=== PATIENT | male | born 1975 | race African-American/Black ===

== ENCOUNTER 2017-08-20 22:34 | Emergency (ER) | payer SELFPAY ==
[2017-08-21] MEDS ORDERED: LIDOCAINE 1% INJ-PF (10 MG/ML) 30 ML SDV INJ ONE
--- NOTE | 2017-08-21 00:08 | ER Document Report ---
ED General - General Chief Complaint: Abscess Stated Complaint: POSSIBLE ABSCESS Time Seen by Provider: 08/20/17 23:52 TRAVEL OUTSIDE OF THE [place] IN LAST 30 DAYS: No - HPI Notes: 41-year-old male presents with possible facial abscess. Patient describes 1 day of increasingly severe swelling and pain in his left cheek region. States started off as a "boil" from an ingrown hair. It has grown in size, throbbing aching, constant. No fever. No history of recurrent abscesses or MRSA. No other modifying factors, no other associated symptoms, no other provocative or palliative factors. Past Medical History - Social History Smoking Status: Never Smoker Drug Abuse: None Lives with: Spouse/Significant other Family History: Reviewed & Not Pertinent - Medical History Medical History: Negative Review of Systems - Review of Systems Notes: Review of systems as in the history of present illness, otherwise negative. Physical Exam - Vital signs Vitals: Temp Pulse Resp BP Pulse Ox 98.6 F 72 16 167/87 H 97 08/20/17 22:51 08/20/17 22:51 08/20/17 22:51 08/20/17 22:51 08/20/17 22:51 - Notes Notes: General: Well devloped, no acute distress. HEENT: Normocephalic, atraumatic. Pupils equal round reactive to light. Mucosa moist. No JVD. There is a 2 x 3 cm area of induration with mild surrounding cellulitis noted about the left cheek Chest: No trauma, normal excursion. Respiratory: Good air exchange, normal excursion. Cardiac: Regular rhythm Abdomen: Soft, benign. Nondistended. Back: No asymmetry or gross abnormality. Motor: Grossly normal power and tone. Neurologic: Alert, nonfocal. Vascular: Well perfused Skin: No petechiae or purpura Course - Re-evaluation Re-evalutation: 08/21/17 00:08 Appearing male with facial abscess, will proceed with consent, incision and drainage. 08/21/17 00:43 Incision and drainage is attempted as described below. There was minimal purulent drainage after incision. This appears to be more consistent with cellulitis. Patient given a dose of Keflex and tramadol in the ED, prescription for the same, will follow up in 24 hours for a wound check. Informed consent was obtained, risks and benefits are discussed, including skin permanent scarring. After appropriate preparation, the area is anesthetized with 1% lidocaine. An incision is made with return of minimal purulent material. Area is explored, and no loculations are found. Irrigated. The wound is packed. No complications. - Vital Signs Vital signs: Temp Pulse Resp BP Pulse Ox 98.6 F 72 16 167/87 H 97 08/20/17 22:51 08/20/17 22:51 08/20/17 22:51 08/20/17 22:51 08/20/17 22:51 Discharge - Discharge Clinical Impression: Cellulitis Qualifiers: Site of cellulitis: face Qualified Code(s): L03.211 - Cellulitis of face Condition: Good Disposition: HOME, SELF-CARE Instructions: Abscess ([facility]), Post Incision and Drainage
[2017-08-21] MEDS ORDERED: CEPHALEXIN 500 MG CAPSULE PO ONE (00:42)
[2017-08-21] MEDS ORDERED: TRAMADOL HCL 50 MG TABLET PO ONE (00:43)
[2017-08-21 01:05] VITALS: BP 124/74
== END 2017-08-21 01:05 | disposition home or self-care (01) ==
LOC: ER 22:34
PROC: 0H91XZZ Drainage of Face Skin, External Approach (ICD-10-PCS; principal; 2017-08-20)
DX: L03.211 Cellulitis of face (principal)
CPT/HCPCS: 10060; 99283; A6266; J3490

== ENCOUNTER 2018-01-09 12:13 | Inpatient (IN) | payer SELFPAY ==
[~2018-01-09 12:13] MED LIST: SUCCINYLCHOLINE CHLORIDE INJ 200 MG/10 ML VIAL ONE
--- NOTE | 2018-01-09 12:20 | ER Document Report ---
ED Extremity Problem, Lower - General Stated Complaint: POSSIBLE BROKEN ANKLE Time Seen by Provider: 01/09/18 12:15 Mode of Arrival: Stretcher Information source: Patient, Emergency Med Personnel TRAVEL OUTSIDE OF THE [place] IN LAST 30 DAYS: No - HPI Patient complains to provider of: Injury, Pain, Swelling Location: Ankle Occurred: Just prior to arrival Where: Outdoors Onset/Duration: Sudden Quality of pain: Achy Severity: Severe Pain Level: 5 Context: Fell Recent injury: Yes Exacerbated by: Movement Relieved by: Nothing Notes: Patient is a 42-year-old male brought to the emergency room by EMS for injury to his left ankle, apparently patient was attempting to abscond from law enforcement, when he tripped and fell injuring his left ankle, he also has abrasions on his bilateral knees and an abrasion to his right forehead, he denies any loss of consciousness, patient received IV pain medication in route, has a gross deformity to the left ankle - Related Data Allergies/Adverse Reactions: No Known Allergies Allergy (Unverified 01/09/18 12:49) Past Medical History - General Information source: Patient, Emergency Med Personnel - Social History Smoking Status: Unknown if Ever Smoked Family History: Reviewed & Not Pertinent Renal/ Medical History: Denies: Hx Peritoneal Dialysis Review of Systems - Review of Systems Constitutional: No symptoms reported EENT: No symptoms reported Cardiovascular: No symptoms reported Respiratory: No symptoms reported Gastrointestinal: No symptoms reported Genitourinary: No symptoms reported Male Genitourinary: No symptoms reported Musculoskeletal: See HPI Skin: No symptoms reported Hematologic/Lymphatic: No symptoms reported Neurological/Psychological: No symptoms reported -: Yes All other systems reviewed and negative Physical Exam - Vital signs Vitals: Temp Pulse Resp BP Pulse Ox 97.2 F 79 17 150/104 H 98 01/09/18 12:25 01/09/18 12:25 01/09/18 12:25 01/09/18 12:25 01/09/18 12:25 Interpretation: Normal - General General appearance: Appears well, Alert - HEENT Head: Normocephalic, Abrasions - 2 cm abrasion to right forehead Eyes: Normal Conjunctiva: Normal Extraocular movements intact: Yes Eyelashes: Normal Pupils: PERRL Neck: Normal - Respiratory Respiratory status: No respiratory distress Chest status: Nontender Breath sounds: Normal Chest palpation: Normal - Cardiovascular Rhythm: Regular Heart sounds: Normal auscultation Murmur: No - Abdominal Inspection: Normal Distension: No distension Bowel sounds: Normal Tenderness: Nontender Organomegaly: No organomegaly - Back Back: Normal, Nontender - Extremities General upper extremity: Normal inspection, Nontender, Normal color, Normal ROM , Normal temperature General lower extremity: Normal color, Normal temperature. No: Jesusita's sign Ankle: Other - Positive deformity to left ankle with distal tibia completely exposed outside of the skin, 2+ DP pulses with brisk capillary refill, distal sensation and motor is intact as well - Neurological Neuro grossly intact: Yes Cognition: Normal Orientation: AAOx4 Fermin Coma Scale Eye Opening: Spontaneous Fermin Coma Scale Verbal: Oriented Fermin Coma Scale Motor: Obeys Commands Fermin Coma Scale Total: 15 Speech: Normal Motor strength normal: LUE, RUE, LLE, RLE Sensory: Normal - Psychological Associated symptoms: Normal affect, Normal mood - Skin Skin Temperature: Warm Skin Moisture: Dry Skin Color: Normal Course - Re-evaluation Re-evalutation: 01/09/18 12:52 Orthopedic physician, Dr. Talat Fink contacted in regards to treatment plan, recommends attempting to reduce, IV antibiotics and admission 01/09/18 13:51 Ankle reduction attempted at bedside under procedural sedation by myself and another emergency medicine physician, however attempts were unsuccessful, orthopedics was contacted who will take patient to the OR for further reduction as well as washout, recommended preop labs, IV antibiotics and pain control as needed, as well as iodine soaked dressings and immobilization - Vital Signs Vital signs: Temp Pulse Resp BP Pulse Ox 97.2 F 93 16 161/100 H 100 01/09/18 12:25 01/09/18 13:27 01/09/18 13:27 01/09/18 14:00 01/09/18 13:27 - Laboratory Result Diagrams: 01/09/18 13:55 01/09/18 13:55 - Diagnostic Test Radiology reviewed: Image reviewed, Reports reviewed Procedures - Conscious Sedation Conscious sedation Time started: 13:29 Time completed: 14:02 Consent obtained: Yes Indication: Ankle dislocation Emergent conditions applies.: E. - ASA Classification Airway Evaluation: Normal anatomy Mallampati Classification: Class 2 Used during procedure: Suction available, IV access obtained, Pulse ox on pt., color television console monitor on pt. Medications administered: Diprivan Reversal agents: None I personally performed/intraservice time: Sedation, Procedure, 31-45 min Complications: No - Immobilization Left Ankle Time completed: 14:00 Pre-Proc Neuro Vasc Exam: Normal Immobilizer type: Sugar tong, Short Leg Posterior Performed by: PCT Post-Proc Neuro Vasc Exam: Normal Alignment checked and good: Yes - Joint Reduction/Fracture Care Left Ankle Time completed: 14:00 Consent obtained: Yes Conscious sedation: Yes Pre-procedure NV exam: Yes Fracture: Open Manipulation comment: Dislocation exaggerated with traction Post-procedure NV exam: Yes Reduction attempts: 3 Complications: Yes - Unable to reduce Notes: 01/09/18 14:27 Several attempts were made under procedural sedation to reduce the ankle dislocation, by [facility], myself and Dr. Moise Hall, all attempts were unsuccessful given the extreme nature of the dislocation, orthopedics was contacted and will take patient to OR for washout and reduction Discharge - Discharge Clinical Impression: Fracture dislocation of ankle Qualifiers: Encounter type: initial encounter Fracture type: open Open fracture type: open type III Laterality: left Qualified Code(s): S82.892C - Other fracture of left lower leg, initial encounter for open fracture type IIIA, IIIB, or IIIC Condition: Stable Disposition: ADMITTED INPATIENT Admitting Provider: Surgicalist - Dr Fink Unit Admitted: Surgical Floor
[2018-01-09] MEDS ORDERED: PROPOFOL INJ 200 MG/20 ML VIAL IV ONE ×5 (12:52→15:37)
[2018-01-09] MEDS ORDERED: CEFAZOLIN 2 GM/D5W RTU 2 GM/50 ML RTUPB IV ONE ×2 (12:52→13:12)
--- NOTE | 2018-01-09 12:53 | RADIOLOGY REPORT (SQ) ---
EXAM DESCRIPTION: CT HEAD WITHOUT COMPLETED DATE/TIME: 01/09/2018 12:44 pm REASON FOR STUDY: injury COMPARISON: None. TECHNIQUE: Axial images acquired through the brain without intravenous contrast. Images reviewed wi th bone, brain and subdural windows. Additional sagittal and coronal reconstructions were generated. Images stored on PACS. All CT scanners at this facility use dose modulation, iterative reconstruction, and/or weight based d osing when appropriate to reduce radiation dose to as low as reasonably achievable (ALARA). [facility]: Dose Right [facility]: CareDose [facility]: Dose Right [facility]: Teradose 4D [facility]: Ad Summos RADIATION DOSE: mGy. LIMITATIONS: None. FINDINGS: VENTRICLES: Normal size and contour. CEREBRUM: No masses. No hemorrhage. No midline shift. No evidence for acute infarction. Normal gra y/white matter differentiation. No areas of low density in the white matter. CEREBELLUM: No masses. No hemorrhage. No alteration of density. No evidence for acute infarction. EXTRAAXIAL SPACES: No fluid collections. No masses. ORBITS AND GLOBE: No intra- or extraconal masses. Normal contour of globe without masses. CALVARIUM: No fracture. PARANASAL SINUSES: No fluid or mucosal thickening. SOFT TISSUES: No mass or hematoma. OTHER: No other significant finding. IMPRESSION: NORMAL BRAIN CT WITHOUT CONTRAST. EVIDENCE OF ACUTE STROKE: NO. COMMENT: Quality ID # [id number]: Final reports with documentation of one or more dose reduction techniques (e.g., Automated exposure control, adjustment of the mA and/or kV according to patient size, use of iterative reconstruction technique) TECHNICAL DOCUMENTATION: JOB ID: [id number] [employer]- All Rights Reserved Reading location - IP/workstation name: [email or web address] / [email or web address]
--- NOTE | 2018-01-09 12:57 | RADIOLOGY REPORT (SQ) ---
EXAM DESCRIPTION: ANKLE LEFT COMPLETE COMPLETED DATE/TIME: 01/09/2018 12:41 pm REASON FOR STUDY: injury COMPARISON: None. NUMBER OF VIEWS: Two views. TECHNIQUE: AP and lateral radiographic images acquired of the left ankle. LIMITATIONS: None. FINDINGS: Lateral dislocation of the ankle joint. Oblique fracture of the lateral malleolus with th e fragment lateral to the talus. IMPRESSION: Fracture dislocation of the ankle. TECHNICAL DOCUMENTATION: JOB ID: [id number] [employer]- All Rights Reserved Reading location - IP/workstation name: [email or web address]
[2018-01-09] MEDS ORDERED: FENTANYL CITRATE INJ/PF 100 MCG/2 ML AMPUL IV ONE (13:55)
[2018-01-09] MEDS ORDERED: FENTANYL CITRATE INJ/PF 100 MCG/2 ML AMPUL ONE ×2 (13:56→15:36)
[2018-01-09 14:41] LABS: ABSOLUTE EOSINOPHILS # (AUTO) 0.1 10^3/uL (0.0-0.6); ABSOLUTE LYMPHOCYTES (AUTO) 1.1 10^3/uL (0.5-4.7); ABSOLUTE MONOCYTES (AUTO) 0.7 10^3/uL (0.1-1.4); ABSOLUTE NEUT (AUTO) 4.4 10^3/uL (1.7-8.2); BASOPHILS % (AUTO) 0.2 % (0-2); EOSINOPHILS % (AUTO) 1.3 % (0-6); HEMATOCRIT 42.9 % (37.9-51.0); LYMPHOCYTES % (AUTO) 17.8 % (13-45); MEAN CORPUSCULAR HEMOGLOBIN 30.7 pg (27.0-33.4); MEAN CORPUSCULAR HGB CONC 34.9 g/dL (32.0-36.0); MEAN CORPUSCULAR VOLUME 88 fl (80-97); PLATELET COUNT 159 10^3/uL (150-450); RED BLOOD COUNT 4.87 10^6/uL (4.35-5.55); SEGMENTED NEUTROPHILS % (AUTO) 69.7 % (42-78); TOTAL CELLS COUNTED % (AUTO) 100 %; WHITE BLOOD COUNT 6.3 10^3/uL (4.0-10.5)
[2018-01-09 14:46] LABS: INTERNATIONAL RATION (INR) 0.98; PROTHROMBIN TIME 13.5 SEC (11.4-15.4)
[2018-01-09 14:47] LABS: PARTIAL THROMBOPLASTIN TIME 27.9 SEC (23.5-35.8)
[2018-01-09 15:04] LABS: ANION GAP 12 (5-19); BLOOD UREA NITROGEN 17 mg/dL (7-20); CALCIUM 9.1 mg/dL (8.4-10.2); CARBON DIOXIDE 23 mmol/L (22-30); CHLORIDE 106 mmol/L (98-107); GLUCOSE 101 mg/dL (75-110); POTASSIUM 4.5 mmol/L (3.6-5.0); SODIUM 141.2 mmol/L (137-145)
[2018-01-09] MEDS ORDERED: BACITRACIN INJ 50,000 UNIT VIAL ONE (15:19)
[2018-01-09] MEDS ORDERED: BUPIVACAINE HCL 0.5 % INJ/PF 30 ML SDV ONE (15:19)
[2018-01-09] MEDS ORDERED: HYDROMORPHONE HCL INJ/PF 2 MG/ML AMPULE ONE (15:36)
[2018-01-09] MEDS ORDERED: MIDAZOLAM 2 MG/2 ML INJ ONE (15:36)
[2018-01-09] MEDS ORDERED: LIDOCAINE 2% INJ-PF (20 MG/ML) 10 ML AMPUL ONE (15:36)
[2018-01-09] MEDS ORDERED: DEXAMETHASONE SOD PHOSPHATE INJ 4 MG/1 ML VIAL ONE (15:37)
[2018-01-09] MEDS ORDERED: ONDANSETRON HCL INJ/PF 4 MG/2 ML SDV ONE (15:37)
[2018-01-09] MEDS ORDERED: ACETAMINOPHEN 1,000 MG/100 ML RTUPB IV ONE (15:37)
[2018-01-09] MEDS ORDERED: ONDANSETRON HCL INJ/PF 4 MG/2 ML SDV IV PRN (16:55)
[2018-01-09] MEDS ORDERED: OXYCODONE-ACETAMINOPHEN 5-325 MG TABLET PO PRN ×2 (16:55)
[2018-01-09] MEDS ORDERED: FENTANYL CITRATE INJ/PF 100 MCG/2 ML AMPUL IV PRN ×3 (16:55)
[2018-01-09] MEDS ORDERED: DIPHENHYDRAMINE HCL 50 MG/ML VIAL IV PRN (16:55)
[2018-01-09] MEDS ORDERED: MEPERIDINE HCL/PF INJ 25 MG/1 ML DISP.SYRIN IV PRN (16:55)
[2018-01-09] MEDS ORDERED: PROMETHAZINE HCL INJ 25 MG/1 ML VIAL IV PRN ×2 (16:55)
--- NOTE | 2018-01-09 17:28 | Operative Report ---
Operative Report DATE OF SURGERY: 01/09/18 PREOPERATIVE DIAGNOSIS: Left tibiotalar fracture dislocation grade 2 open OPERATION: Open reduction of left tibiotalar dislocation. Debridement of soft tissue, skin, and bone from the open fracture location. Application of external fixator frame SURGEON: CRYSTAL NAVARRETE ANESTHESIA: GA TISSUE REMOVED OR ALTERED: Tissue debrided to pathology ESTIMATED BLOOD LOSS: Minimal PROCEDURE: With the patient supine on the operating table the left lower extremities prepped and draped in a sterile fashion. The limb is elevated for exsanguination and tourniquet inflated 280 torr. An attempt is made at a closed reduction however the tendons from the posterior tibial sheath serve to block the reduction because they are on the lateral side of the distal tibia. The existing soft tissue defect which is approximately 10 cm primarily dorsal to anterior over the region of the medial malleolus is an extended proximally and distally. Doing so a retractors placed around the tendons and distracted which allowed a window to reduce the tibiotalar joint. The wound is then debrided meticulously. A Axonify delta external fixator frame was then applied to the left lower extremity with 2 pins proximally, a trans-calcaneal pin, and a first metatarsal pin. Fracture reduction and hardware placement are appropriate when judged by fluoroscopy. The wound was then irrigated with pulse lavage using 3 L normal saline containing bacitracin. The tourniquet is deflated. Hemostasis obtained with electrocautery and with suture ligation of damaged venous structures. The portion of the wound that was opened to allow the reduction of the tibiotalar joint is then reapproximated interrupted nylon. Loose nylon sutures were then used to prevent retraction of the wound edges from the open aspect of the laceration. The lower extremities and cleansed using oxide and a sterile compressive dressings applied. The patient's return to PACU in satisfactory condition.
[2018-01-09] MEDS ORDERED: ACETAMINOPHEN 325 MG TABLET PO PRN (17:58)
[2018-01-09] MEDS ORDERED: ONDANSETRON 4 MG TAB.RAPDIS PO PRN (17:58)
--- NOTE | 2018-01-09 18:34 | RADIOLOGY REPORT (SQ) ---
EXAM DESCRIPTION: NO CHG FLUORO; ANKLE LEFT AP/LATERAL COMPLETED DATE/TIME: 01/09/2018 5:51 pm REASON FOR STUDY: LEFT ANKLE EXTERNAL FIXATOR COMPARISON: 01/09/2018 FLUOROSCOPY TIME: 0.1 minute Images saved to PACS LIMITATIONS: None. PROCEDURE: Left ankle external fixator. FINDINGS: 4 images obtained with fluoro document a portions of the procedure. IMPRESSION: Left ankle external fixator. Refer to operative note for further information. COMMENT: PQRS 6045F: Fluoroscopy time of the procedure is documented in the report. TECHNICAL DOCUMENTATION: JOB ID: [id number] [employer]- All Rights Reserved Reading location - IP/workstation name: [email or web address]
--- NOTE | 2018-01-09 18:34 | RADIOLOGY REPORT (SQ) ---
EXAM DESCRIPTION: NO CHG FLUORO; ANKLE LEFT AP/LATERAL COMPLETED DATE/TIME: 01/09/2018 5:51 pm REASON FOR STUDY: LEFT ANKLE EXTERNAL FIXATOR COMPARISON: 01/09/2018 FLUOROSCOPY TIME: 0.1 minute Images saved to PACS LIMITATIONS: None. PROCEDURE: Left ankle external fixator. FINDINGS: 4 images obtained with fluoro document a portions of the procedure. IMPRESSION: Left ankle external fixator. Refer to operative note for further information. COMMENT: PQRS 6045F: Fluoroscopy time of the procedure is documented in the report. TECHNICAL DOCUMENTATION: JOB ID: [id number] [employer]- All Rights Reserved Reading location - IP/workstation name: [email or web address]
[2018-01-09] MEDS: MORPHINE SULFATE 10 MG/ML INJ INJ PRN ×2 (20:40→22:37)
[2018-01-09] MEDS: CEFAZOLIN 2 GM/D5W RTU 2 GM/50 ML RTUPB IV SCH (21:42)
[2018-01-09] MEDS: OXYCODONE HCL IR 5 MG TABLET PO PRN (22:01)
[2018-01-09] MEDS: RINGERS SOLUTION,LACTATED 1,000 ML IV PRN (23:30)
[2018-01-10] MEDS: MORPHINE SULFATE 10 MG/ML INJ INJ PRN ×6 (02:12→18:22)
[2018-01-10] MEDS: OXYCODONE HCL IR 5 MG TABLET PO PRN ×4 (04:01→19:33)
[2018-01-10 05:44] LABS: ABSOLUTE MONOCYTES (AUTO) 1.3 10^3/uL (0.1-1.4); ABSOLUTE NEUT (AUTO) 12.1 10^3/uL (1.7-8.2); BASOPHILS % (AUTO) 0.2 % (0-2); HEMATOCRIT 40.9 % (37.9-51.0); HEMOGLOBIN 14.1 g/dL (13.5-17.0); LYMPHOCYTES % (AUTO) 6.6 % (13-45); MEAN CORPUSCULAR HEMOGLOBIN 30.6 pg (27.0-33.4); MEAN CORPUSCULAR HGB CONC 34.4 g/dL (32.0-36.0); MEAN CORPUSCULAR VOLUME 89 fl (80-97); MONOCYTES % (AUTO) 8.7 % (3-13); PLATELET COUNT 172 10^3/uL (150-450); RED BLOOD COUNT 4.61 10^6/uL (4.35-5.55); RED CELL DISTRIBUTION WIDTH 13.1 % (11.5-14.0); SEGMENTED NEUTROPHILS % (AUTO) 84.5 % (42-78); TOTAL CELLS COUNTED % (AUTO) 100 %
[2018-01-10 05:56] LABS: WHITE BLOOD COUNT 14.4 10^3/uL (4.0-10.5)
[2018-01-10] MEDS: CEFAZOLIN 2 GM/D5W RTU 2 GM/50 ML RTUPB IV SCH ×3 (05:58→21:31)
[2018-01-10] MEDS: RINGERS SOLUTION,LACTATED 1,000 ML IV PRN (06:00)
[2018-01-10 06:03] LABS: BLOOD UREA NITROGEN 15 mg/dL (7-20); CALCIUM 9.2 mg/dL (8.4-10.2); GLUCOSE 122 mg/dL (75-110)
[2018-01-10 06:04] LABS: ANION GAP 13 (5-19); CARBON DIOXIDE 25 mmol/L (22-30); CHLORIDE 102 mmol/L (98-107); POTASSIUM 4.5 mmol/L (3.6-5.0); SODIUM 140.2 mmol/L (137-145)
--- NOTE | 2018-01-10 06:29 | PDOC PROGRESS REPORT ---
Subjective Reason For Visit: FRACTURE DISLOCATION OF ANKLE Postop day 1 status post open reduction of an open left ankle fracture dislocation and application of external fixator. Physical Exam Vital Signs: Temp Pulse Resp BP Pulse Ox 36.6 C 97 18 160/100 H 92 01/09/18 21:47 01/09/18 21:47 01/09/18 21:47 01/09/18 21:47 01/09/18 21:47 Intake & Output 01/08/18 01/09/18 01/10/18 06:59 06:59 06:59 Intake Total 5275 Output Total 50 Balance 5225 General appearance: PRESENT: no acute distress, mild distress Head exam: PRESENT: normocephalic Respiratory exam: PRESENT: unlabored Cardiovascular exam: PRESENT: RRR Vascular exam: PRESENT: normal capillary refill GI/Abdominal exam: PRESENT: soft Rectal exam: PRESENT: deferred Extremities exam: PRESENT: other - Left lower extremity external fixator intact. Underlying dressing clean dry and intact. Brisk capillary refill to the toes. Neurological exam: PRESENT: alert, awake, oriented to person, oriented to place , oriented to time, oriented to situation. ABSENT: motor sensory deficit Psychiatric exam: PRESENT: appropriate affect, normal mood. ABSENT: homicidal ideation, suicidal ideation Skin exam: PRESENT: dry, intact, warm. ABSENT: cyanosis, rash Results Laboratory Results: 01/10/18 04:43 01/10/18 04:43 01/10/18 01/10/18 04:43 04:43 WBC 14.4 H D RBC 4.61 Hgb 14.1 Hct 40.9 MCV 89 MCH 30.6 MCHC 34.4 RDW 13.1 Plt Count 172 Seg Neutrophils % 84.5 H Lymphocytes % 6.6 L Monocytes % 8.7 Eosinophils % 0.0 Basophils % 0.2 Absolute Neutrophils 12.1 H Absolute Lymphocytes 1.0 Absolute Monocytes 1.3 Absolute Eosinophils 0.0 Absolute Basophils 0.0 Sodium 140.2 Potassium 4.5 Chloride 102 Carbon Dioxide 25 Anion Gap 13 BUN 15 Creatinine 1.10 Est GFR ( Amer) > 60 Est GFR (Non-Af Amer) > 60 Glucose 122 H Calcium 9.2 Impressions: Fluoroscopy 01/09/18 00:00 IMPRESSION: Left ankle external fixator. Refer to operative note for further information. Ankle X-Ray 01/09/18 12:16 IMPRESSION: Fracture dislocation of the ankle. Head CT 01/09/18 12:16 IMPRESSION: NORMAL BRAIN CT WITHOUT CONTRAST. EVIDENCE OF ACUTE STROKE: NO. Status: Imported from PACS Assessment & Plan - Diagnosis (1) Fracture dislocation of ankle Qualifiers: Encounter type: initial encounter Fracture type: open Open fracture type : open type III Laterality: left Qualified Code(s): S82.892C - Other fracture of left lower leg, initial encounter for open fracture type IIIA, IIIB , or IIIC Is this a current diagnosis for this admission?: Yes Plan: Patient be mobilized with physical therapy and a touchdown weightbearing restriction left lower extremity. Pain management consult pending. Discharge plan uncertain at this point in terms of his suitability to return to a assisted environment. - Time Time Spent with patient: 15-24 minutes Anticipated discharge: Other Within: Other
[2018-01-10] MEDS: ASPIRIN 81 MG TABLET, ENT COATED PO SCH (10:17)
[2018-01-10] MEDS: OXYCODONE HCL SR 10 MG TABLET PO SCH (21:32)
[2018-01-11] MEDS: OXYCODONE HCL IR 5 MG TABLET PO PRN ×7 (00:24→23:35)
[2018-01-11] MEDS: CEFAZOLIN 2 GM/D5W RTU 2 GM/50 ML RTUPB IV SCH ×3 (05:09→21:55)
--- NOTE | 2018-01-11 06:16 | PDOC PROGRESS REPORT ---
Subjective Progress Note for:: 01/11/18 Reason For Visit: FRACTURE DISLOCATION OF ANKLE 42-year-old black male postop day 2 status post open reduction of a left ankle fracture dislocation and application of an external fixator. Patient's done fine overnight complaining of pain. Physical Exam Vital Signs: Temp Pulse Resp BP Pulse Ox 37.4 C 84 15 155/86 H 93 01/11/18 00:35 01/11/18 00:35 01/11/18 00:35 01/11/18 00:35 01/11/18 00:35 Intake & Output 01/09/18 01/10/18 01/11/18 06:59 06:59 06:59 Intake Total 5511 3392 Output Total 950 1500 Balance 4561 1892 Weight 90.9 kg 89.7 kg General appearance: PRESENT: mild distress Head exam: PRESENT: normocephalic Respiratory exam: PRESENT: unlabored Cardiovascular exam: PRESENT: RRR Pulses: PRESENT: +1 pedal pulses bilateral Vascular exam: PRESENT: normal capillary refill GI/Abdominal exam: PRESENT: soft Rectal exam: PRESENT: deferred Musculoskeletal exam: PRESENT: other - External fixator frame intact. Pin sites are dry as is the remainder of the dressing. Neurovascular examination of the toes is intact. Neurological exam: PRESENT: alert, awake, oriented to person, oriented to place , oriented to time, oriented to situation. ABSENT: motor sensory deficit Skin exam: PRESENT: dry, intact, warm. ABSENT: cyanosis, rash Results Laboratory Results: 01/10/18 04:43 01/10/18 04:43 Impressions: Fluoroscopy 01/09/18 00:00 IMPRESSION: Left ankle external fixator. Refer to operative note for further information. Ankle X-Ray 01/09/18 12:16 IMPRESSION: Fracture dislocation of the ankle. Head CT 01/09/18 12:16 IMPRESSION: NORMAL BRAIN CT WITHOUT CONTRAST. EVIDENCE OF ACUTE STROKE: NO. Status: Imported from PACS Assessment & Plan - Diagnosis (1) Fracture dislocation of ankle Qualifiers: Encounter type: initial encounter Fracture type: open Open fracture type : open type III Laterality: left Qualified Code(s): S82.892C - Other fracture of left lower leg, initial encounter for open fracture type IIIA, IIIB , or IIIC Is this a current diagnosis for this admission?: Yes Plan: Patient making progress with physical therapy. Anticipate dressing change in the morning with potential discharge home with home health services. - Time Time Spent with patient: 15-24 minutes Anticipated discharge: Home with Homehealth Within: within 24 hours
[2018-01-11] MEDS: OXYCODONE HCL SR 10 MG TABLET PO SCH ×2 (09:09→21:55)
[2018-01-11] MEDS: ASPIRIN 81 MG TABLET, ENT COATED PO SCH (09:10)
[2018-01-11] MEDS: DOCUSATE SODIUM 100 MG CAPSULE PO SCH ×2 (11:44→20:28)
[2018-01-12] MEDS: OXYCODONE HCL IR 5 MG TABLET PO PRN ×2 (03:52→08:21)
[2018-01-12] MEDS: CEFAZOLIN 2 GM/D5W RTU 2 GM/50 ML RTUPB IV SCH (05:51)
--- NOTE | 2018-01-12 06:53 | PDOC DISCHARGE SUMMARY ---
General - Admit/Disc Date/PCP Admission Date/Primary Care Provider: 01/09/18 14:03 Discharge Date: 01/12/18 - Discharge Diagnosis (1) Fracture dislocation of ankle Is this a current diagnosis for this admission?: Yes - Additional Information Resuscitation Status: Full Code Discharge Diet: As Tolerated, Regular Discharge Activity: Balance Activity w/Rest, No Driving, No tub bath Home Medications: Aspirin [Ecotrin 81 mg EC Tablet] 81 mg PO DAILY tabec 01/12/18 Oxycodone HCl [Oxy-Ir 5 mg Tablet] 5 mg PO Q3HP PRN tablet 01/12/18 History of Present Illness History of Present Illness: DILIA OCONNOR JR is a 42 year old male Patient is a 42-year-old black male who presents to the emergency room in police custody with an open left ankle fracture dislocation. Is admitted to the orthopedic service for fracture management. Hospital Course Hospital Course: Patient undergoes a close open reduction of the ankle fracture dislocation and application of external fixator. He tolerates the procedure without complication. Is returned to floor in satisfactory condition. Pain control is a problem and pain management is consulted for assistance of this. He makes progress with physical therapy on touchdown weightbearing restriction. Dressing is changed on postop day 2. Wound is well approximated without drainage or erythema. Physical Exam Vital Signs: Temp Pulse Resp BP Pulse Ox 37.3 C 116 H 16 141/97 H 94 01/11/18 20:10 01/11/18 20:10 01/11/18 20:10 01/11/18 20:10 01/11/18 20:10 Intake & Output 01/10/18 01/11/18 01/12/18 06:59 06:59 06:59 Intake Total 5511 3392 2455 Output Total 950 1500 1000 Balance 4561 1892 1455 Weight 90.9 kg 89.7 kg 86.9 kg Physical Exam: Middle-aged black male lying in a hospital bed with an external fixator applied to his left lower extremity General appearance: PRESENT: mild distress Head exam: PRESENT: normocephalic Respiratory exam: PRESENT: unlabored Cardiovascular exam: PRESENT: RRR Pulses: PRESENT: +1 pedal pulses bilateral Vascular exam: PRESENT: normal capillary refill GI/Abdominal exam: PRESENT: soft Rectal exam: PRESENT: deferred Extremities exam: PRESENT: other - Left lower extremity with external fixture applied. Dressing is changed. Wound itself is well approximated sutures clean and dry without drainage. Pin sites are clean. Neurological exam: PRESENT: alert, awake, oriented to person, oriented to place , oriented to time, oriented to situation. ABSENT: motor sensory deficit Psychiatric exam: PRESENT: appropriate affect, normal mood. ABSENT: homicidal ideation, suicidal ideation Skin exam: PRESENT: dry, intact, warm. ABSENT: cyanosis, rash Results Laboratory Results: 01/10/18 04:43 01/10/18 04:43 Impressions: Fluoroscopy 01/09/18 00:00 IMPRESSION: Left ankle external fixator. Refer to operative note for further information. Ankle X-Ray 01/09/18 12:16 IMPRESSION: Fracture dislocation of the ankle. Head CT 01/09/18 12:16 IMPRESSION: NORMAL BRAIN CT WITHOUT CONTRAST. EVIDENCE OF ACUTE STROKE: NO. Status: Imported from PACS Qualifiers - * PATIENT BEING DISCHARGED WITH ANY OF THE FOLLOWING DIAGNOSIS: No VTE patient discharged on overlapping Therapy?: Yes Plan Discharge Plan: Patient to be discharged home on oral Keflex, oral analgesics, and with a touchdown weightbearing restriction. Follow-up with Dr. Fink and [facility] for surgery on of this week. Time Spent: Greater than 30 Minutes
[2018-01-12] MEDS: OXYCODONE HCL SR 10 MG TABLET PO SCH (10:46)
[2018-01-12] MEDS: ASPIRIN 81 MG TABLET, ENT COATED PO SCH (10:47)
[2018-01-12] MEDS: DOCUSATE SODIUM 100 MG CAPSULE PO SCH (10:48)
[2018-01-12 11:01] VITALS: BP 161/100
--- NOTE | 2018-01-12 12:46 | PROGRESS NOTE E ---
Progress Note NAME: DILIA OCONNOR : 1975 AGE: 42Y DATE: 01/11/2018 ROOM: 415 SUBJECTIVE: I spoke with patient's nurse via telephone. Had only started the OxyContin last night around 9:00 p.m. and had his second dose early this morning around 9:00 a.m. The IV morphine has been discontinued. The Percocet has continued at q. 4. Patient is complaining of significant pain increase around hour 3 after the Percocet dosing. He has also noted some constipation as well. OBJECTIVE: None. ASSESSMENT: LEFT ANKLE PAIN, ACUTE POSTOPERATIVE PAIN, AND CONSTIPATION. PLAN: Keep the OxyContin as is. Change the Percocet to q. 3 hours for today and plan to back off tomorrow. Will add in some Colace 100 mg twice daily for constipation relief. DICTATING PHYSICIAN: ALBERTA WEATHERS, PA-C For Josue Cabrera MD [id number] PHY#: [id number] ID: [id number] JOB#: [id number] ACCT: [id number] cc: > MTDD
--- NOTE | 2018-01-12 22:11 | CONSULT/HISTORY AND PHYSICAL E ---
Consultation/History and Physical PATIENT NAME: DILIA OCONNOR : 1975 AGE: 42Y DATE: 01/10/2018 ROOM: 415 CHIEF COMPLAINT: Left ankle pain. HISTORY OF PRESENT ILLNESS: A 42-year-old male status post ORIF of the left ankle with external fixator. Surgery done yesterday by Dr. Fink. Current regimen is IV morphine and p.o. Percocet. He is getting adequate relieve for about 1-2 hours. Wearing off around hour 3. He denies side effects, sedation, constipation, altered mental status with current medication. Brings pain down to 2/5 from 4-5/5. PAST MEDICAL HISTORY: Unknown. SURGICAL HISTORY: Unknown, except for ankle surgery done yesterday, 01/09. MEDICATIONS: See the MAR. ALLERGIES: NKDA. SOCIAL HISTORY: Unknown. REVIEW OF SYSTEMS: Per HPI. PHYSICAL EXAMINATION: VITAL SIGNS: Temperature is 98.6, pulse 93, blood pressure 145/84, respirations 16, O2 sats are 99 on room air. Pain 4/5. GENERAL: He is a well-developed, well-nourished man, younger than stated age. No acute distress. Sitting comfortably in bed. EYES: EOMI. LUNGS: Respirations even and unlabored work of breathing. Lungs are clear to auscultation. CARDIOVASCULAR: Regular rate and rhythm. No murmurs, rubs, or gallops. ABDOMEN: Soft, nontender, nondistended. EXTREMITIES: The left ankle is in surgical bandages that are clean, dry, and intact. Left ankle with an external fixator. NEUROLOGIC: Alert and oriented x3. Cranial nerves II-XII grossly intact. ASSESSMENT: 1. Left ankle pain. 2. Acute postoperative pain. PLAN: 1. We are going to add OxyContin 10 mg b.i.d./q.12 hours. 2. We are keep the Percocet q.4 and the morphine IV as previously ordered until adjusted to the OxyContin. 3. Ideally tomorrow plan to discontinue the morphine and we will reassess pain medications tomorrow. Monitor for constipation and treat accordingly. DICTATING PHYSICIAN: ALBERTA WEATHERS, PADanieleC For Josue Cabrera MD [id number] PHY#: [id number] ID: [id number] JOB#: [id number] ACCT: [id number] cc:SHAVONNE WEATHERS M.D. > XU
== END 2018-01-12 11:48 | disposition home or self-care (01) | DRG 494 ==
LOC: ER 12:13 → EH 14:03 → 4N 18:25
PROVIDERS: ADMIT Orthopaedic Surgery; ATTEND Orthopaedic Surgery
PROC: 0QHM34Z Insertion of Internal Fixation Device into Left Tarsal, Percutaneous Approach (ICD-10-PCS; 2018-01-09)
PROC: 0QSH05Z Reposition Left Tibia with External Fixation Device, Open Approach (ICD-10-PCS; principal; 2018-01-09 16:15)
DX: S82.892B Other fracture of left lower leg, initial encounter for open fracture type I or II (principal); G89.18 Other acute postprocedural pain; K59.00 Constipation, unspecified; M25.572 Pain in left ankle and joints of left foot; S00.81XA Abrasion of other part of head, initial encounter; S80.212A Abrasion, left knee, initial encounter; S80.211A Abrasion, right knee, initial encounter; W19.XXXA Unspecified fall, initial encounter; Y93.02 Activity, running; Y92.89 Other specified places as the place of occurrence of the external cause
CPT/HCPCS: 01480; 36415; 70450; 80048; 85025; 85610; 85730; 99285; 99152; C1713; J0131; J0330; J0690; J1100; J1170; J2250; J2270; J2405; J2704; J3010; J3490; J7120; S0119

== ENCOUNTER 2018-02-17 02:18 | Emergency (ER) | payer SELFPAY ==
[2018-02-17] MEDS ORDERED: HYDROMORPHONE HCL INJ/PF 2 MG/ML AMPULE IV ONE (02:57)
--- NOTE | 2018-02-17 03:01 | ER Document Report ---
ED General - General Chief Complaint: Post Surgical Pain Stated Complaint: FOOT PAIN Time Seen by Provider: 02/17/18 02:51 Notes: Patient is a 42-year-old male who was admitted on January 09 for ankle fracture. On the went external fixation with an external fixator in place and was discharged on Keflex. Says he was doing well until his mother went to clean around some the areas of external fixator and since then he has had some increased swelling and pain in his right foot. No fevers. Some nausea. No new trauma or injuries that he is aware of. He had his stitches removed last week. He did take the Keflex as prescribed. He states been taking Tylenol for pain at home. TRAVEL OUTSIDE OF THE [place] IN LAST 30 DAYS: No - Related Data Allergies/Adverse Reactions: No Known Allergies Allergy (Verified 02/17/18 03:27) Past Medical History - Social History Smoking Status: Unknown if Ever Smoked Frequency of alcohol use: None Drug Abuse: None Family History: Reviewed & Not Pertinent Renal/ Medical History: Denies: Hx Peritoneal Dialysis Review of Systems - Review of Systems Notes: My Normal Review Basic REVIEW OF SYSTEMS: CONSTITUTIONAL : Denies fever, chills, or sweats. Denies recent illness. RESPIRATORY: Denies cough, cold, or chest congestion. Denies shortness of breath, difficulty breathing, or wheezing. GASTROINTESTINAL: Denies abdominal pain. Denies nausea, vomiting, or diarrhea. MUSCULOSKELETAL: Pain in left foot. SKIN: Denies rash or skin lesions. NEUROLOGICAL: Denies altered mental status or loss of consciousness. Denies headache. Denies weakness or paralysis or loss of use of either side. Denies problems with gait or speech. Denies sensory or motor loss. ALL OTHER SYSTEMS REVIEWED AND NEGATIVE. Physical Exam - Vital signs Vitals: Pulse Resp BP Pulse Ox 99 20 120/73 96 02/17/18 02:35 02/17/18 02:35 02/17/18 02:35 02/17/18 02:35 - Notes Notes: General Appearance: Well nourished, alert, cooperative, no acute distress, moderate obvious discomfort. Vitals: reviewed, See vital signs table. Extremities: Good distal pulses in left foot. Good capillary refill of all toes. Patient has external fixator in place over the left ankle and left lower leg. The foot is a bit more swollen than the right. Tone is maybe slightly darker on the left foot summary however there is some associated swelling. There is no abnormal warmth to palpation. Denies any purulence or drainage coming from around the areas where the external fixator penetrates the patient' s foot or leg. Skin: warm, dry, appropriate color, no rash Neuro: speech clear, oriented x 3, normal affect, responds appropriately to questions. Course - Re-evaluation Re-evalutation: 02/17/18 06:50 Not completely convinced the patient has infection of the ankle however he himself feels that it is more swollen, more painful, and that made the skin is little bit darker than it was before. He has no white count leukocytosis. I will place him on doxycycline. I want him that he is to call the office this morning to follow-up either today or tomorrow. I did eventually speak with Dr. Eckert, orthopedist, informed him that the patient was here and that he will need close follow-up in office. He agrees with plan. I encouraged the patient to return to ER immediately if he has increasing swelling, any fevers, or any spreading redness or darkening of the skin. Agrees with plan will be discharged home. Dictation of this chart was performed using voice recognition software; therefore, there may be some unintended grammatical errors. - Vital Signs Vital signs: Temp Pulse Resp BP Pulse Ox 97.7 F 73 19 115/60 96 02/17/18 05:10 02/17/18 05:09 02/17/18 05:09 02/17/18 05:09 02/17/18 05:09 - Laboratory Result Diagrams: 02/17/18 03:11 02/17/18 03:11 Laboratory results interpreted by me: 02/17/18 03:11 Glucose 128 H Discharge - Discharge Clinical Impression: Post-operative pain Condition: Good Disposition: HOME, SELF-CARE Additional Instructions: Please call Dr. Navarrete's office this am for close follow up. Please inform them that you were seen in the ER and you are to follow up within the next 2 days. Please return to the ER immediately if you develop fevers, increasing swelling, redness on the foot, or if you feel your foot is worsening in any way. Please be aware that Dola does have Tylenol (acetaminophen) in it. Please make sure you do not take more than 4000 mg of acetaminophen a day. Do not drive or care for children after you have taken this medication they will make you sleepy and sometimes impair judgment. Doxycycline will make your skin more sensitive to the sun so please make sure you keep your skin covered or wear sunscreen whenever out in the sun. Prescriptions: Doxycycline Hyclate 100 mg PO BID #14 capsule Hydrocodone/Acetaminophen [Dola 5-325 mg Tablet] 1 tab PO Q4 PRN #16 tablet PRN Reason: For Breakthrough Pain Referrals: CRYSTAL NAVARRETE MD [ACTIVE STAFF] - Follow up tomorrow
[2018-02-17 03:33] LABS: ABSOLUTE EOSINOPHILS # (AUTO) 0.1 10^3/uL (0.0-0.6); ABSOLUTE LYMPHOCYTES (AUTO) 1.7 10^3/uL (0.5-4.7); ABSOLUTE NEUT (AUTO) 6.2 10^3/uL (1.7-8.2); BASOPHILS % (AUTO) 0.3 % (0-2); EOSINOPHILS % (AUTO) 0.9 % (0-6); HEMATOCRIT 40.3 % (37.9-51.0); HEMOGLOBIN 14.1 g/dL (13.5-17.0); LYMPHOCYTES % (AUTO) 19.1 % (13-45); MEAN CORPUSCULAR HEMOGLOBIN 30.5 pg (27.0-33.4); MEAN CORPUSCULAR HGB CONC 34.9 g/dL (32.0-36.0); MEAN CORPUSCULAR VOLUME 88 fl (80-97); MONOCYTES % (AUTO) 11.1 % (3-13); PLATELET COUNT 173 10^3/uL (150-450); RED BLOOD COUNT 4.61 10^6/uL (4.35-5.55); RED CELL DISTRIBUTION WIDTH 13.3 % (11.5-14.0); SEGMENTED NEUTROPHILS % (AUTO) 68.6 % (42-78); TOTAL CELLS COUNTED % (AUTO) 100 %; WHITE BLOOD COUNT 9.1 10^3/uL (4.0-10.5)
[2018-02-17 03:46] LABS: ANION GAP 10 (5-19); BLOOD UREA NITROGEN 17 mg/dL (7-20); CALCIUM 9.4 mg/dL (8.4-10.2); CARBON DIOXIDE 23 mmol/L (22-30); CHLORIDE 106 mmol/L (98-107); GLUCOSE 128 mg/dL (75-110); POTASSIUM 3.9 mmol/L (3.6-5.0); SODIUM 138.6 mmol/L (137-145)
--- NOTE | 2018-02-17 03:48 | RADIOLOGY REPORT (SQ) ---
EXAM DESCRIPTION: XR FOOT COMPLETED DATE/TME: 02/17/2018 02:57 CLINICAL HISTORY: 42 years Male, post op pain COMPARISON: None. Limitation: Hardware artifact. Findings: External hardware fixation of a distal fibular fracture site near anatomic alignment including screw fixation involving the dorsal midfoot and calcaneus.. Bones, joints, and soft tissues of the visualized LEFT XR FOOT 4 VIEWS appear otherwise intact. IMPRESSION: OREF of the distal fibular fracture site. No acute findings.
[2018-02-17] MEDS ORDERED: DOXYCYCLINE HYCLATE 100 MG TABLET PO ONE (04:58)
[2018-02-17] MEDS ORDERED: HYDROCODONE/ACETAMINOPHEN 5-325 MG (6 TAB/ER DISP) PO PRN (04:59)
[2018-02-17 05:10] VITALS: BP 115/60
== END 2018-02-17 05:32 | disposition home or self-care (01) ==
LOC: ER 02:18
DX: G89.18 Other acute postprocedural pain (principal); M79.671 Pain in right foot; R11.0 Nausea
CPT/HCPCS: 99283; 96374; 36415; 85025; 80048; 73620; J1170